=== PATIENT | male | born 1970 | race Caucasian/White ===

== ENCOUNTER → 2017-03-11 | Outpatient (CLI) | payer OTHER ==
[~2017-03-11] MED LIST: BUPIVACAINE 0.25% 30 ML SDV ONE; LIDOCAINE 1% 300 MG/30 ML SDV ONE
== END ==
LOC: FIMAGING 07:57
PROVIDERS: ATTEND Radiology Diagnostic Radiology
PROC: 3E023GC Introduction of Other Therapeutic Substance into Muscle, Percutaneous Approach (ICD-10-PCS; principal; 2017-03-11)
DX: M25.522 Pain in left elbow (principal)